=== PATIENT | female | born 1975 | race American Indian/Alaskan Native ===

== ENCOUNTER 2018-06-17 16:00 | Emergency (ER) | payer SELFPAY ==
--- NOTE | 2018-06-17 19:53 | Emergency Department Report ---
Upper Extremity - HPI Chief Complaint: Extremity Injury, Upper Stated Complaint: DISLOCATED SHOULDER Time Seen by Provider: 06/17/18 19:52 Upper Extremity: Left Shoulder Occurred When: >5 Days (3 weeks) Symptoms: Yes Pain with Movement (not able to live on a about 10 from side.), Yes Limited Range of Movement, Yes Swelling, No Numbness, No Weakness Other History: 42-year-old -Citizen Of [place] female presents to the emergency room for complaint of left shoulder pain. Patient states that her left shoulder came out of place about 3 weeks ago while lifting furniture. Patient reports that her son-in-law was able to put it back in place. She did go to [facility] and was told that it was not dislocated or fractured. She was given muscle relaxant and ibuprofen for pain but has not helped. Patient reports that she sometimes gets numbness to her fingers in the morning when she accidentally laid on that side. 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 Patient reports no other past medical history or injuries. 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 ED Review of Systems ROS: Stated complaint: DISLOCATED SHOULDER Other details as noted in HPI Comment: All other systems reviewed and negative Musculoskeletal: joint swelling (left shoulder), arthralgia (left shoulder) ED Past Medical Hx - Past Medical History Previous Medical History?: No - Surgical History Past Surgical History?: No - Social History Smoking Status: Never Smoker Substance Use Type: None - Medications Home Medications: Home Medications Medication Instructions Recorded Confirmed Last Taken Type Ibuprofen [Motrin] 600 mg PO Q8H PRN #20 tablet 02/21/14 Unknown Rx Methocarbamol [Robaxin] 750 mg PO Q8H PRN #21 tablet 02/21/14 Unknown Rx Naproxen [Naprosyn] 500 mg PO BID #30 tablet 06/17/18 Unknown Rx Upper Extremity Exam - Exam General: Vital signs noted. No distress. Alert and acting appropriately. Head and Torso: No HEENT Abnormality, No Neck Tenderness, No Chest/Lungs Abnormality, No Abdominal Tenderness, No Back Tenderness Shoulder Exam: Yes Shoulder Tenderness (left), Yes AC Joint Tenderness, No Clavicle Tenderness, No Normal Range of Motion in Shoulder, No Shoulder Deformity Arm Exam: No Arm/Humerus Tenderness, No Arm Deformity Elbow: No Elbow Tenderness, No Normal Range of Motion in Elbow, No Elbow Deformity Forearm: Yes Pain with Pronation (left shoulder), Yes Pain with Supination ( left shoulder), No Forearm Tenderness, No Forearm Deformity Wrist: Yes Normal ROM in Wrist, No Wrist Tenderness, No Wrist Deformity, No Snuffbox Tenderness, No Pain with Axial Thumb Compression Hand: Yes Normal ROM in Digit(s), No Hand Tenderness, No Hand Deformity, No Digit Tenderness, No Digit(s) Deformity, No Tendon Dysfunction CMS Exam: No Broken Skin, No Normal Distal Pulses, No Normal Capillary Refill, No Normal Distal Sensation ED Course Vital Signs 06/17/18 16:17 Temperature 98.2 F Pulse Rate 95 H Respiratory 16 Rate Blood Pressure 116/71 O2 Sat by Pulse 99 Oximetry ED Medical Decision Making - Radiology Data Radiology results: report reviewed, image reviewed FINAL REPORT EXAM: XR SHOULDER 2+V LT HISTORY: has had previous disslocations says it popped out. TECHNIQUE: Frontal, Grashey and Y-views left shoulder Comparison: None FINDINGS: There is no evidence of fracture or subluxation. The soft tissues are unremarkable. IMPRESSION: 1. No evidence of fracture or subluxation. Transcribed By: ED Dictated By: NOE SILVERIO MD Electronically Authenticated By: NOE SILVERIO MD Signed Date/Time: 06/17/182013 DD/ 13 TD/TT: 06/17/182013 - Medical Decision Making Patient has been evaluated by this provider fast track. X-ray of the shoulder is pending. Patient declines pain medication reports that pain is only when she tries to lift it or do supination and pronation. X-ray comes back with normal examination. Discussed patient that I will refer her to orthopedist to have further testing such as MRI. Patient verbalized understanding. - Differential Diagnosis rotator cuff tear, frozen shoulder, dislocation Critical care attestation.: If time is entered above; I have spent that time in minutes in the direct care of this critically ill patient, excluding procedure time. ED Disposition Clinical Impression: Left anterior shoulder pain Disposition: DC-01 TO HOME OR SELFCARE Is pt being admited?: No Does the pt Need Aspirin: No Condition: Stable Instructions: Arthralgia (ED), Shoulder Sprain (ED), Naproxen (By mouth) Additional Instructions: Please take pain medication as needed. I recommend eating prior to taking medication. It's very important free to follow-up with orthopedic provider I have listed several below. Prescriptions: Naproxen [Naprosyn] 500 mg PO BID #30 tablet Referrals: PRIMARY CARE, [Primary Care Provider] - 3-5 Days DAWIT MORENO MD [Staff Physician] - 3-5 Days JONAH KING MD [Staff Physician] - 3-5 Days [facility] [Provider Group] - 3-5 Days Forms: Work/School Release Form(ED), Accompanied Note
--- NOTE | 2018-06-17 20:15 | XRay Report ---
FINAL REPORT EXAM: XR SHOULDER 2+V LT HISTORY: has had previous disslocations says it popped out. TECHNIQUE: Frontal, Grashey and Y-views left shoulder Comparison: None FINDINGS: There is no evidence of fracture or subluxation. The soft tissues are unremarkable. IMPRESSION: 1. No evidence of fracture or subluxation.
[2018-06-17 20:30] VITALS: BP 120/70
== END 2018-06-17 20:30 | disposition home or self-care (01) ==
LOC: ED 16:00
DX: M25.512 Pain in left shoulder (principal)
CPT/HCPCS: 99283

== ENCOUNTER 2019-11-20 12:10 | Emergency (ER) | payer SELFPAY ==
[2019-11-20 12:14] VITALS: BP 122/81
--- NOTE | 2019-11-20 12:25 | Event Note ---
ED Screening Note Date of service: 11/20/19 Time: 12:23 ED Screening Note: 44 y o f presents with throat pain,radiating to ears and body aches x 2 days exudative, swollen tonsils This initial assessment/diagnostic orders/clinical plan/treatment(s) is/are subject to change based on patients health status, clinical progression and re- assessment by fellow clinical providers in the ED. Further treatment and workup at subsequent clinical providers discretion. Patient/guardian urged not to elope from the ED as their condition may be serious if not clinically assessed and managed. Initial orders include: rapid strep acc eval
== END 2019-11-20 16:00 | disposition left against medical advice (07) ==
LOC: ED 12:10
DX: R07.0 Pain in throat (principal); Z53.21 Procedure and treatment not carried out due to patient leaving prior to being seen by health care provider
CPT/HCPCS: 87116; 87430

== ENCOUNTER 2019-11-20 20:20 | Emergency (ER) | payer OTHER ==
[2019-11-20 23:29] VITALS: BP 111/80
--- NOTE | 2019-11-21 01:10 | Emergency Department Report ---
ED ENT HPI - General Chief complaint: Sore Throat Stated complaint: BILATERAL EAR PAIN SORE THROAT Time Seen by Provider: 11/21/19 00:33 Source: patient Mode of arrival: Ambulatory Limitations: No Limitations - History of Present Illness Initial comments: 44-year-old -[place] female presents to the emergency room for bilateral ear pain for 2 days states his sidestepping sooner ears. Patient reports it hurts more to place her headphones in her ears. Patient also complains of sore throat hurts to swallow. Patient reports she had a fever earlier today Motrin at 10 PM aden. complaint: sore throat, ear pain, difficulty swallowing Onset/Timin -: days(s) - Related Data Previous Rx's Medication Instructions Recorded Last Taken Type Ibuprofen [Motrin] 600 mg PO Q8H PRN #20 tablet 02/21/14 Unknown Rx methOCARBAMOL [Robaxin] 750 mg PO Q8H PRN #21 tablet 02/21/14 Unknown Rx Naproxen [Naprosyn] 500 mg PO BID #30 tablet 06/17/18 Unknown Rx Amoxicillin [Amoxicillin TAB] 875 mg PO BID 10 Days #20 tablet 11/21/19 Unknown Rx Ciprofloxacin HCl/Dexameth 2 drop OS BID #7.5 ml 11/21/19 Unknown Rx [Ciprodex Otic Suspension] Allergies Allergy/AdvReac Type Severity Reaction Status Date / Time Sulfa (Sulfonamide Allergy Swelling Verified 06/17/18 16:17 Antibiotics) ED Dental HPI - General Chief complaint: Sore Throat Stated complaint: BILATERAL EAR PAIN SORE THROAT Time Seen by Provider: 11/21/19 00:33 Source: patient Mode of arrival: Ambulatory Limitations: No Limitations - Related Data Previous Rx's Medication Instructions Recorded Last Taken Type Ibuprofen [Motrin] 600 mg PO Q8H PRN #20 tablet 02/21/14 Unknown Rx methOCARBAMOL [Robaxin] 750 mg PO Q8H PRN #21 tablet 02/21/14 Unknown Rx Naproxen [Naprosyn] 500 mg PO BID #30 tablet 06/17/18 Unknown Rx Amoxicillin [Amoxicillin TAB] 875 mg PO BID 10 Days #20 tablet 11/21/19 Unknown Rx Ciprofloxacin HCl/Dexameth 2 drop OS BID #7.5 ml 11/21/19 Unknown Rx [Ciprodex Otic Suspension] Allergies Allergy/AdvReac Type Severity Reaction Status Date / Time Sulfa (Sulfonamide Allergy Swelling Verified 06/17/18 16:17 Antibiotics) ED Review of Systems ROS: Stated complaint: BILATERAL EAR PAIN SORE THROAT Other details as noted in HPI Comment: All other systems reviewed and negative ED Past Medical Hx - Past Medical History Previous Medical History?: No - Surgical History Past Surgical History?: No - Social History Smoking Status: Never Smoker Substance Use Type: None - Medications Home Medications: Home Medications Medication Instructions Recorded Confirmed Last Taken Type Ibuprofen [Motrin] 600 mg PO Q8H PRN #20 tablet 02/21/14 Unknown Rx methOCARBAMOL [Robaxin] 750 mg PO Q8H PRN #21 tablet 02/21/14 Unknown Rx Naproxen [Naprosyn] 500 mg PO BID #30 tablet 06/17/18 Unknown Rx Amoxicillin [Amoxicillin TAB] 875 mg PO BID 10 Days #20 tablet 11/21/19 Unknown Rx Ciprofloxacin HCl/Dexameth 2 drop OS BID #7.5 ml 11/21/19 Unknown Rx [Ciprodex Otic Suspension] ED Physical Exam - General Limitations: No Limitations General appearance: alert, in no apparent distress - Head Head exam: Present: atraumatic, normocephalic - Eye Eye exam: Present: normal appearance - Expanded ENT Exam Expanded TM/Canal exam: Erythema: Left TM, Canal Discharge: Left TM, Canal Tenderness: Left TM Throat exam: Positive: tonsillar erythema, tonsillomegaly, tonsillar exudate - Neck Neck exam: Present: normal inspection, full ROM, lymphadenopathy. Absent: tenderness - Neurological Exam Neurological exam: Present: alert, oriented X3, normal gait - Psychiatric Psychiatric exam: Present: normal affect, normal mood - Skin Skin exam: Present: warm, dry, intact, normal color. Absent: rash ED Course Vital Signs 11/20/19 22:48 Temperature 98.6 F Pulse Rate 101 H Respiratory 18 Rate Blood Pressure 111/80 O2 Sat by Pulse 100 Oximetry ED Medical Decision Making - Medical Decision Making 44-year-old -[place] female presents to the emergency room for bilateral ear pain for 2 days states his sidestepping sooner ears. Patient reports it hurts more to place her headphones in her ears. Patient also complains of sore throat hurts to swallow. Patient reports she had a fever earlier today Motrin at 10 PM tonight. Patient will be treated for strep pharyngitis. Continue taking Tylenol and Motrin as needed for pain and fever control. Critical care attestation.: If time is entered above; I have spent that time in minutes in the direct care of this critically ill patient, excluding procedure time. ED Disposition Clinical Impression: Pharyngitis Qualifiers: Pharyngitis/tonsillitis etiology: streptococcus Qualified Code(s): J02.0 - Streptococcal pharyngitis Otitis externa Qualifiers: Otitis externa type: unspecified type Chronicity: acute Laterality: left Qualified Code(s): H60.502 - Unspecified acute noninfective otitis externa, left ear Disposition: TO HOME OR SELFCARE Is pt being admited?: No Does the pt Need Aspirin: No Condition: Stable Instructions: Strep Throat (ED) Additional Instructions: Take Tylenol or ibuprofen as needed for pain management and fever control. Prescriptions: Amoxicillin [Amoxicillin TAB] 875 mg PO BID 10 Days #20 tablet Ciprofloxacin HCl/Dexameth [Ciprodex Otic Suspension] 2 drop OS BID #7.5 ml Referrals: PRIMARY CARE, [Primary Care Provider] - 3-5 Days Forms: Work/School Release Form(ED)
== END 2019-11-21 01:24 | disposition home or self-care (01) ==
LOC: ED 20:20
DX: J02.9 Acute pharyngitis, unspecified (principal); H60.93 Unspecified otitis externa, bilateral; Z79.1 Long term (current) use of non-steroidal anti-inflammatories (NSAID); Z79.2 Long term (current) use of antibiotics; Z79.899 Other long term (current) drug therapy; Z88.2 Allergy status to sulfonamides
CPT/HCPCS: 99282

== ENCOUNTER 2020-09-20 15:54 | Emergency (ER) | payer SELFPAY ==
[2020-09-20] MEDS ORDERED: SODIUM CHLORIDE 0.9% 500 ML 500 ML IV ONE (16:07)
[2020-09-20 16:24] LABS: Basophils # (Auto) 0.1 K/mm3 (0.0-0.1); Basophils % (Auto) 0.4 % (0.0-1.8); Hemoglobin 11.9 gm/dl (10.1-14.3); Lymphocytes # (Auto) 1.7 K/mm3 (1.2-5.4); Lymphocytes % (Auto) 10.1 % (13.4-35.0); Mean Corpuscular HGB Conc 33 % (30-34); Mean Corpuscular Volume 91 fl (79-97); Monocytes # (Auto) 1.2 K/mm3 (0.0-0.8); Monocytes % (Auto) 7.4 % (0.0-7.3); Platelet Count 233 K/mm3 (140-440); Red Blood Count 3.97 M/mm3 (3.65-5.03); Red Cell Distribution Width 13.7 % (13.2-15.2)
[2020-09-20] MEDS ORDERED: ACETAMINOPHEN 325 MG TAB PO ONE (16:38)
[2020-09-20 16:41] LABS: INR 0.98 (0.87-1.13)
[2020-09-20 16:47] LABS: Alanine Aminotransferase 20 units/L (7-56); Albumin 3.8 g/dL (3.9-5); BUN/Creatinine Ratio 11; Blood Urea Nitrogen 9 mg/dL (7-17); Calcium 9.1 mg/dL (8.4-10.2); Hemolysis Index 8
[2020-09-20] MEDS ORDERED: dexAMETHasone 4 MG/ML VIAL IV ONE (16:48)
[2020-09-20] MEDS ORDERED: KETOROLAC 30 MG/1 ML INJ IV ONE (16:48)
--- NOTE | 2020-09-20 16:52 | Emergency Department Report ---
ED ENT HPI - General Chief complaint: Fever Stated complaint: SORE THROAT Time Seen by Provider: 09/20/20 16:42 Source: patient Mode of arrival: Ambulatory Limitations: No Limitations - History of Present Illness Initial comments: 44-year-old female presents to ED with complaint of sore throat and bilateral ear pain since last night. She also reports associated fever and headache. She denies any cough, shortness of breath. Patient states she works in [employer] at [employer] and they get tested for COVID-19 every Tuesday. Patient states her last test was negative, she will be tested again tomorrow. MD complaint: sore throat -: Last night Location: R ear, L ear, throat Severity: moderate Quality: aching Consistency: constant Improves with: none Worsens with: swallowing Associated Symptoms: fever, pain with swallowing, sore throat. denies: cough, discharge from ear, rhinorrhea - Related Data Previous Rx's Medication Instructions Recorded Last Taken Type Ibuprofen [Motrin] 600 mg PO Q8H PRN #20 tablet 02/21/14 Unknown Rx methOCARBAMOL [Robaxin] 750 mg PO Q8H PRN #21 tablet 02/21/14 Unknown Rx Naproxen [Naprosyn] 500 mg PO BID #30 tablet 06/17/18 Unknown Rx Amoxicillin [Amoxicillin TAB] 875 mg PO BID 10 Days #20 tablet 11/21/19 Unknown Rx Ciprofloxacin HCl/Dexameth 2 drop OS BID #7.5 ml 11/21/19 Unknown Rx [Ciprodex Otic Suspension] Naproxen [Naprosyn] 500 mg PO BID #20 tablet 09/20/20 Unknown Rx Allergies Allergy/AdvReac Type Severity Reaction Status Date / Time Sulfa (Sulfonamide Allergy Swelling Verified 06/17/18 16:17 Antibiotics) ED Dental HPI - General Chief complaint: Fever Stated complaint: SORE THROAT Time Seen by Provider: 09/20/20 16:42 Source: patient Mode of arrival: Ambulatory Limitations: No Limitations - Related Data Previous Rx's Medication Instructions Recorded Last Taken Type Ibuprofen [Motrin] 600 mg PO Q8H PRN #20 tablet 02/21/14 Unknown Rx methOCARBAMOL [Robaxin] 750 mg PO Q8H PRN #21 tablet 02/21/14 Unknown Rx Naproxen [Naprosyn] 500 mg PO BID #30 tablet 06/17/18 Unknown Rx Amoxicillin [Amoxicillin TAB] 875 mg PO BID 10 Days #20 tablet 11/21/19 Unknown Rx Ciprofloxacin HCl/Dexameth 2 drop OS BID #7.5 ml 11/21/19 Unknown Rx [Ciprodex Otic Suspension] Naproxen [Naprosyn] 500 mg PO BID #20 tablet 09/20/20 Unknown Rx Allergies Allergy/AdvReac Type Severity Reaction Status Date / Time Sulfa (Sulfonamide Allergy Swelling Verified 06/17/18 16:17 Antibiotics) ED Review of Systems ROS: Stated complaint: SORE THROAT Other details as noted in HPI Comment: All other systems reviewed and negative Constitutional: fever ENT: throat pain Respiratory: denies: cough, shortness of breath Gastrointestinal: denies: vomiting, diarrhea Neurological: headache ED Past Medical Hx - Past Medical History Previous Medical History?: No - Surgical History Past Surgical History?: No - Social History Smoking Status: Never Smoker - Medications Home Medications: Home Medications Medication Instructions Recorded Confirmed Last Taken Type Ibuprofen [Motrin] 600 mg PO Q8H PRN #20 tablet 02/21/14 Unknown Rx methOCARBAMOL [Robaxin] 750 mg PO Q8H PRN #21 tablet 02/21/14 Unknown Rx Naproxen [Naprosyn] 500 mg PO BID #30 tablet 06/17/18 Unknown Rx Amoxicillin [Amoxicillin TAB] 875 mg PO BID 10 Days #20 tablet 11/21/19 Unknown Rx Ciprofloxacin HCl/Dexameth 2 drop OS BID #7.5 ml 11/21/19 Unknown Rx [Ciprodex Otic Suspension] Naproxen [Naprosyn] 500 mg PO BID #20 tablet 09/20/20 Unknown Rx ED Physical Exam - General Limitations: No Limitations General appearance: alert, in no apparent distress - Head Head exam: Present: atraumatic, normocephalic - Eye Eye exam: Present: normal appearance, EOMI - ENT ENT exam: Present: TM's normal bilaterally, other (Exudates present on bilateral tonsils, uvula midline, airway is patent, no drooling present) - Neck Neck exam: Present: normal inspection - Respiratory Respiratory exam: Present: normal lung sounds bilaterally. Absent: respiratory distress, stridor - Cardiovascular Cardiovascular Exam: Present: normal rhythm, tachycardia - GI/Abdominal GI/Abdominal exam: Present: soft. Absent: distended, tenderness - Extremities Exam Extremities exam: Present: normal inspection - Neurological Exam Neurological exam: Present: alert, oriented X3 - Psychiatric Psychiatric exam: Present: normal affect, normal mood - Skin Skin exam: Present: warm, dry, intact, normal color ED Course Vital Signs 09/20/20 09/20/20 09/20/20 16:04 17:00 17:30 Temperature 102.6 F H Pulse Rate 133 H 114 H 112 H Respiratory 22 25 H 21 Rate Blood Pressure 125/72 116/74 115/70 O2 Sat by Pulse 96 99 98 Oximetry 09/20/20 09/20/20 09/20/20 17:40 18:00 18:29 Temperature 100.3 F H Pulse Rate 103 H Respiratory 18 Rate Blood Pressure 109/61 O2 Sat by Pulse 98 Oximetry 09/20/20 18:30 Temperature Pulse Rate Respiratory 20 Rate Blood Pressure 103/62 O2 Sat by Pulse 98 Oximetry ED Medical Decision Making - Lab Data Result diagrams: 09/20/20 16:09 09/20/20 16:09 - Radiology Data Radiology results: report reviewed, image reviewed - Medical Decision Making 44-year-old female presents to ED with sore throat and bilateral ear pain since yesterday. Patient febrile and tachycardic here in the ED with white count of 16. Examination of posterior or pharynx reveals exudates on bilateral tonsils. Rapid strep test is negative, however both patient and nurse admit that it was likely not a great sample, as patient did not tolerate swabbing. Patient given IM Bicillin for likely strep throat. She has also been given Tylenol, IV fluids, Toradol, and Decadron. Patient reports some relief from the medications. Vitals have improved, with fever and tachycardia resolving. Outpatient follow-up advised. Return precautions given. Patient advised to obtain outpatient Covid testing. - Differential Diagnosis Strep throat, COVID-19, influenza Critical care attestation.: If time is entered above; I have spent that time in minutes in the direct care of this critically ill patient, excluding procedure time. ED Disposition Clinical Impression: Acute pharyngitis Disposition: -01 TO HOME OR SELFCARE Is pt being admited?: No Condition: Stable Instructions: Strep Throat, Adult, [id number] Prescriptions: Naproxen [Naprosyn] 500 mg PO BID #20 tablet Referrals: SHARON PEREZ MD [Referring] - as needed Forms: Work/School Release Form(ED) Time of Disposition: 18:19
--- NOTE | 2020-09-20 17:17 | XRay Report ---
XR chest 1V ap INDICATION / CLINICAL INFORMATION: possible Sepsis. COMPARISON: 02/21/2014 FINDINGS: SUPPORT DEVICES: None. HEART /PULMONARY VASCULATURE: No significant abnormality. LUNGS / PLEURA: No significant pulmonary or pleural abnormality. No pneumothorax. ADDITIONAL FINDINGS: No significant additional findings. IMPRESSION: 1. No acute findings. Signer Name: Jonah Pérez MD Signed: 09/20/2020 5:12 PM Workstation Name: [id number]
[2020-09-20 17:20] LABS: Bilirubin,Urine NEG (Negative); Blood,Urine MOD (Negative); Color,Urine Yellow (Yellow); Mucus,Urine 1+ /HPF; WBC,Urine < 1.0 /HPF (0.0-6.0)
[2020-09-20] MEDS ORDERED: PENICILLIN G BENZATHINE 1.2 MILLION UNIT/2 ML INJ IM ONE (17:38)
[2020-09-20 18:37] VITALS: BP 103/62
== END 2020-09-20 18:37 | disposition home or self-care (01) ==
LOC: ED 15:54
DX: J02.9 Acute pharyngitis, unspecified (principal); H92.01 Otalgia, right ear; H92.02 Otalgia, left ear; Z88.2 Allergy status to sulfonamides
CPT/HCPCS: 36415; 71045; 80053; 81001; 82140; 82805; 85025; 85610; 87040; 87116; 87400; 87430; 93005; 96361; 96372; 96374; 96375; 99284; J0561; J1100; J1885; J7040